=== PATIENT | male | born 1980 | race Two or more races ===

== ENCOUNTER 2025-09-23 03:47 | Inpatient (IN) | payer MEDICAID, OTHER ==
[~2025-09-23] VITALS: Ht 177.8 cm; Wt 140.0 kg
[2025-09-23 04:23] LABS: Hematocrit 44.1 % (41.0-53.0); Hemoglobin 15.3 g/dL (13.5-17.5); Mean Corpuscular Hemoglobin 30.9 pg (28.0-32.0); Mean Corpuscular Volume 89.3 fL (80.0-100.0); Nucleated Red Blood Cells % 0.0 %
--- NOTE | 2025-09-23 04:26 | ED.PDOC ---
History of Present Illness HPI Comments 45-year-old male who came to ER for chest pains. Patient has a history of hypertension but has stopped taking his medications. He has been experiencing flu-like symptoms for the past 3 days, with weakness, body pains, shortness of breath and midsternal chest pressure, 6/10 in intensity. Persistence of chest pains prompted patient to come to the ER. Patient appears very diaphoretic at this time of care REVIEW OF SYSTEMS: General: No fever, no chills, or fatigue HEENT: No sore throat, no earache, no congestion, no neck pain. Cardiac: (+) chest pain. No palpitations. Lungs: (+) shortness of breath, no cough. GI: No nausea, no vomiting, no diarrhea, no constipation, no abdominal pain : No dysuria, frequency, or urgency. No hematuria. Musculoskeletal: No joint pain , no joint swelling, no extremity edema. (+) body pain Skin: No rash, no itching. Neuro: No headache, no dizziness, no weakness EXAM: General: Awake, alert and oriented. No acute distress. Skin: Skin in warm, dry and intact. Appropriate color for ethnicity. HEENT: The head is normocephalic and atraumatic. Conjunctivae are clear without exudates or hemorrhage. Sclera is non-icteric. EOM are intact. No signs of nysta gmus. Eyelids are normal in appearance without swelling or lesions. Oral mucosa is pink and moist Neck: The neck is supple with normal range of motion. No JVD. Cardiac: Heart rate and rhythm are normal. No murmurs, gallops, or rubs are auscultated. Respiratory: No signs of respiratory distress. Lung sounds are clear in all lobes bilaterally without rales, rhonchi, or wheezes. Abdominal: Abdomen is soft, non-tender without distention. Bowel sounds are present and normoactive in all four quadrants. Extremities: Upper and lower extremities are atraumatic in appearance without deformity or edema. Neurological: The patient is awake, alert and oriented to person, place, and time with normal speech. Speech is clear. There is no facial asymmetry. Psychiatric: Appropriate mood and affect. Good judgement and insight Chief Complaint: Chest Pain Time Seen by MD: 04:26 Reviewed Notes: Nurses Notes Allergies: Coded Allergies: No Known Drug Allergy (Verified Allergy, Unknown, 09/23/25) Information Source: Patient Mode of Arrival: Ambulatory Past Medical History PAST MEDICAL HISTORY: HTN Past Medical History (Other): Skin cancer Surgical History (Other): Resection of skin cancer Family History Family History: Reviewed,noncontributory to illness Social History Smoker: Non-Smoker Alcohol: Denies ETOH Use Drugs: Marijuana Lives In: Home Was a procedure done? Was a procedure done?: No EKG EKG : Pulse Rate (adult): 91 Cardiac Rhythm: NSR Differential Dx Considerations may include: Anemia, electrolyte imbalance, viral syndrome, chest pain, coronary artery disease, OK X-Ray, Labs, Meds, VS Vital Signs Date Time Temp Pulse Resp B/P (MAP) Pulse Ox O2 Delivery O2 Flow Rate FiO2 09/23/25 07:34 81 09/23/25 07:31 97.8 89 18 142/89 (106) 95 97.8 09/23/25 05:33 90 20 93 Room Air 09/23/25 05:33 97.9 90 20 137/91 (106) 93 97.9 09/23/25 04:58 88 09/23/25 04:34 20 93 Room Air* 0 21 09/23/25 04:26 91 09/23/25 03:57 91 09/23/25 03:48 97.6 90 18 124/77 95 97.6 Lab Test 09/23/25 07:09 09/23/25 05:40 09/23/25 05:06 09/23/25 04:09 Range/Units Troponin I High Sensitivity 15 18 18 </=54 ng/L Influenza Type A Antigen Negative Negative Influenza Type B Antigen Negative Negative SARS-CoV-2 Antigen (Rapid) Negative NEGATIVE White Blood Count 9.4 4.4-10.8 10^3/uL Red Blood Count 4.94 4.5-5.90 10^6/uL Hemoglobin 15.3 13.5-17.5 g/dL Hematocrit 44.1 41.0-53.0 % Mean Corpuscular Volume 89.3 80.0-100.0 fL Mean Corpuscular Hemoglobin 30.9 28.0-32.0 pg Mean Corpuscular Hemoglobin Concent 34.6 32.0-36.0 g/dL Red Cell Distribution Width 14.3 11.8-14.3 % Platelet Count 293 140-450 10^3/uL Mean Platelet Volume 7.7 6.9-10.8 fL Neutrophils (%) (Auto) 65.0 37.0-80.0 % Lymphocytes (%) (Auto) 21.5 10.0-50.0 % Monocytes (%) (Auto) 10.0 0.0-12.0 % Eosinophils (%) (Auto) 2.7 0.0-7.0 % Basophils (%) (Auto) 0.8 0.0-2.0 % Neutrophils # (Auto) 6.1 1.6-8.6 10 ^3/uL Lymphocytes # (Auto) 2.0 0.4-5.4 10 ^3/uL Monocytes # (Auto) 0.9 0-1.3 10 ^3/uL Eosinophils # (Auto) 0.3 0-0.8 10 ^3/uL Basophils # (Auto) 0.1 0-0.2 10 ^3/uL Nucleated Red Blood Cells 0.0 % Sodium Level 139 136-145 mmol/L Potassium Level 4.0 3.5-5.1 mmol/L Chloride Level 107 98-107 mmol/L Carbon Dioxide Level 22 20-31 mmol/L Anion Gap 10 5-15 Blood Urea Nitrogen 10 9-23 mg/dL Creatinine 1.10 0.700-1.30 mg/dL Glomerular Filtration Rate Calc 85 >90 mL/min BUN/Creatinine Ratio 9.1 L 10.0-20.0 Serum Glucose 108 H 74-106 mg/dL Calcium Level 9.7 8.7-10.4 mg/dL CHEST RADIOGRAPH INDICATION: chest pain TECHNIQUE: Single frontal view of the chest was obtained COMPARISON: None IMPRESSION: Heart appears normal in size. The lungs appear clear without focal airspace opacity, effusion, or pneumothorax Time of 1ST Reevaluation: 04:21 Reevaluation 1ST: Unchanged Patient Education/Counseling: Need For Follow Up Family Education/Counseling: No Family Present SEPSIS Sepsis Screen Date sepsis recognized/suspect: Sep 23, 2025 Time Sepsis recognized/suspect: 035 Recent Procedure: No On Antibiotic Therapy: No Respiratory Rate >20: No Heart Rate >90: No Temp<36 C (96.8 F) or >38.3 C: No SBP <90 or MAP <65 mmHG: No New Acute Mental Status Change: No Is the patient on CPAP, BIPAP,: No Physician Orders Chest Portable (09/23/25 03:52) Electrocardigram (09/23/25 03:52) Electrocardigram (09/23/25 04:52) Electrocardigram (09/23/25 06:52) Code Status (09/23/25 07:55) Oxygen Per Hour (09/23/25 07:55) Vital Signs Date Time Temp Pulse Resp B/P (MAP) Pulse Ox O2 Delivery O2 Flow Rate FiO2 09/23/25 07:34 81 09/23/25 07:31 97.8 89 18 142/89 (106) 95 97.8 09/23/25 05:33 90 20 93 Room Air 09/23/25 05:33 97.9 90 20 137/91 (106) 93 97.9 09/23/25 04:58 88 09/23/25 04:34 20 93 Room Air* 0 21 09/23/25 04:26 91 09/23/25 03:57 91 09/23/25 03:48 97.6 90 18 124/77 95 97.6 Laboratory Tests Test 09/23/25 04:09 White Blood Count 9.4 10^3/uL (4.4-10.8) Departure 1 Departure Time of Disposition: 05:46 Impression: Primary Impression: Chest pain Disposition: ADMITTED INPATIENT Condition: Stable Comments 45 yo male with multiple risk factors with ongoing chest pain concerning for ACS. Patient admitted to hospitalist service for further treatment, evaluation and monitoring. Critical Care Note Critical Care Time?: No Stability Stability form required: No Heart Score Heart Score: Heart Score Response (Comments) Value History N/A 0 EKG N/A 0 Age N/A 0 Risk Factors N/A 0 Troponin N/A 0 Total 0 I personally scribed for JACKY LOZOYA MD ([email or web address]) on 09/23/25 at 04:26. Electronically submitted by Tulio Butler ([employer]). I personally scribed for JACKY LOZOYA MD ([email or web address]) on 09/23/25 at 05:12. Electronically submitted by Tulio Butler ([email or web address]). JACKY LOZOYA MD Sep 23, 2025 04:26
[2025-09-23 04:29] LABS: Potassium 4.0 mmol/L (3.5-5.1); Sodium 139 mmol/L (136-145)
[2025-09-23 04:30] LABS: Anion Gap 10 (5-15); Calcium 9.7 mg/dL (8.7-10.4); Carbon Dioxide 22 mmol/L (20-31)
[2025-09-23] MEDS: ALBUTEROL SULF 2.5 MG/0.5ML(0.5%) NEB SOLN NEB ONE (04:34)
[2025-09-23 04:35] LABS: BUN/Creatinine Ratio 9.1 (10.0-20.0); Blood Urea Nitrogen 10 mg/dL (9-23)
--- NOTE | 2025-09-23 04:35 | DVH ---
CHEST RADIOGRAPH INDICATION: chest pain TECHNIQUE: Single frontal view of the chest was obtained COMPARISON: None IMPRESSION: Heart appears normal in size. The lungs appear clear without focal airspace opacity, effusion, or pneumothorax
[2025-09-23 04:36] LABS: Chloride 107 mmol/L (98-107); Glucose 108 mg/dL (74-106)
[2025-09-23] MEDS: ACETAMINOPHEN 500 MG TAB or CAP PO ONE (05:33)
[2025-09-23 06:37] LABS: COVID19 ANTIGEN SOFIA FIA NEGATIVE (NEGATIVE)
[2025-09-23] MEDS ORDERED: DOCUSATE SOD 100 MG CAP PO PRN (08:00)
[2025-09-23] MEDS ORDERED: HYDROcodone-ACET 5/325MG TAB PO PRN (08:00)
[2025-09-23] MEDS ORDERED: ONDANSETRON HCL 4 MG/2 ML VIAL IV PRN (08:00)
[2025-09-23] MEDS ORDERED: ALBUTEROL SULF 2.5 MG/0.5ML(0.5%) NEB SOLN NEB PRN (08:00)
--- NOTE | 2025-09-23 08:50 | DVHHP2 ---
History of Present Illness Reason for Visit: Acute chest pain History of Present Illness The patient is a 45-year-old male morbidly obese with past medical history of hypertension and skin cancer who presented to [facility] ED with complaint of chest pain. Patient reports has been experiencing persistent substernal chest pain rating 6/10 numeric scale, associated with flu-like symptoms for the past 3 days, body pain, weakness, shortness of breaths, getting worse that prompted this visit. Patient was seen and evaluated in the ED, laboratory data shows WBC 9.4, platelets 293, sodium 139, potassium 4.0, BUN 10, creatinine 1.10, GFR 85, glucose 108, calcium 9.7, troponin 18, blood pressure 142/89, heart rate 82, temperature 97.8 F, O2 saturation 95% on room air. Chest x-ray showed no acute cardiopulmonary disease. Please see medication orders section in the computer. On my assessment, patient denied chest pain at this moment, no headache, dizziness, diaphoresis, shortness of breaths, no diarrhea, nausea, vomiting, fever, no chills. Patient was admitted for further evaluation and medical management. Past Medical History HTN, Skin cancer Past Surgical History Resection of skin cancer Family History Reviewed, noncontributory to the management of this case. Past Social History The patient lives at home, denies smoking, alcohol or illicit drugs abuse. Review of Systems Constitutional: Yes: Weakness; No: Fever, Chills, Sweats, Malaise, Other Eyes: No: Pain, Vision change, Conjunctivae inflammation, Eyelid inflammation, Other, Redness ENT: No: Ear pain, Ear discharge, Nose pain, Nose discharge, Nose congestion, Mouth pain, Mouth swelling, Throat pain, Throat swelling, Other Respiratory: No: Cough, Dry, Shortness of breath, SOB with excertion, Wheezing, Hemoptysis, Pleuritic Pain, Sputum, Wheezing, Other Cardiovascular: Chest Pain; No: Palpitations, Orthopnea, Paroxysmal Noc. Dyspnea, Edema, Lt Headedness, Other Gastrointestinal: No: Nausea, Vomiting, Abdominal Pain, Diarrhea, Constipation, Melena, Hematochezia, Other Genitourinary: No Dysuria, No Frequency, No Incontinence, No Hematuria, No Retention, No Other Musculoskeletal: No: other, neck pain, shoulder pain, arm pain, back pain, hand pain, leg pain, foot pain Skin: No: Rash, Lesions, Jaundice, Bruising, Other Neurological: No: Weakness, Numbness, Incoordination, Change in speech, Confusion, Seizures, Other Allergies: Coded Allergies: No Known Drug Allergy (Verified Allergy, Unknown, 09/23/25) Medications Current Medications Medications Dose Ordered Sig/Iram Route Start Time Stop Time Status Last Admin Dose Admin Albuterol 2.5 mg Q4HPRN PRN NEB 09/23/25 08:00 UNV Clonidine HCl 0.1 mg Q4HP PRN PO 09/23/25 08:00 Amlodipine Besylate 5 mg DAILY PO 09/23/25 10:00 Losartan Potassium 25 mg DAILY PO 09/23/25 10:00 Aspirin 81 mg DAILY PO 09/23/25 10:00 Sodium Chloride 1,000 ml @ 60 mls/hr [id number] IV 09/23/25 08:00 Acetaminophen/ Hydrocodone Bitart 1 tab Q4HP PRN PO 09/23/25 08:00 Ondansetron HCl 4 mg Q4HP PRN IV 09/23/25 08:00 Docusate Sodium 100 mg BIDPRN PRN PO 09/23/25 08:00 Acetaminophen 650 mg Q6HP PRN PO 09/23/25 08:00 Exam Vital Signs Vital Signs Date Time Temp Pulse Resp B/P (MAP) Pulse Ox O2 Delivery O2 Flow Rate FiO2 09/23/25 07:34 81 09/23/25 07:31 97.8 18 142/89 (106) 95 97.8 09/23/25 05:33 Room Air 09/23/25 04:34 0 21 General Appearance: Alert, Oriented X3, Cooperative, No acute distress HEENT: Atraumatic, PERRLA, EOMI, Mucous membr. moist/pink Respiratory: Clear to auscultation, Normal air movement Cardiovascular: Regular rate, Normal S1, Normal S2, No murmurs Abdominal: Normal bowel sounds, Soft, No tenderness, No hepatospenomegaly, No masses Extremities: No clubbing, No cyanosis, No edema, Normal pulses, No tender ness/swelling Skin: No rashes, No significant lesion Neuro: Normal speech, Normal tone, Sensation intact, Cranial nerves 3-12 NL, Reflexes 2+, Other (Generalized weakness) Psych/Mental Status: Mental status NL, Mood NL Labs/Xrays Labs Test 09/23/25 07:09 09/23/25 05:40 09/23/25 04:09 Range/Units Troponin I High Sensitivity 15 </=54 ng/L Influenza Type A Antigen Negative Negative Influenza Type B Antigen Negative Negative SARS-CoV-2 Antigen (Rapid) Negative NEGATIVE White Blood Count 9.4 4.4-10.8 10^3/uL Red Blood Count 4.94 4.5-5.90 10^6/uL Hemoglobin 15.3 13.5-17.5 g/dL Hematocrit 44.1 41.0-53.0 % Mean Corpuscular Volume 89.3 80.0-100.0 fL Mean Corpuscular Hemoglobin 30.9 28.0-32.0 pg Mean Corpuscular Hemoglobin Concent 34.6 32.0-36.0 g/dL Red Cell Distribution Width 14.3 11.8-14.3 % Platelet Count 293 140-450 10^3/uL Mean Platelet Volume 7.7 6.9-10.8 fL Neutrophils (%) (Auto) 65.0 37.0-80.0 % Lymphocytes (%) (Auto) 21.5 10.0-50.0 % Monocytes (%) (Auto) 10.0 0.0-12.0 % Eosinophils (%) (Auto) 2.7 0.0-7.0 % Basophils (%) (Auto) 0.8 0.0-2.0 % Neutrophils # (Auto) 6.1 1.6-8.6 10 ^3/uL Lymphocytes # (Auto) 2.0 0.4-5.4 10 ^3/uL Monocytes # (Auto) 0.9 0-1.3 10 ^3/uL Eosinophils # (Auto) 0.3 0-0.8 10 ^3/uL Basophils # (Auto) 0.1 0-0.2 10 ^3/uL Nucleated Red Blood Cells 0.0 % Sodium Level 139 136-145 mmol/L Potassium Level 4.0 3.5-5.1 mmol/L Chloride Level 107 98-107 mmol/L Carbon Dioxide Level 22 20-31 mmol/L Anion Gap 10 5-15 Blood Urea Nitrogen 10 9-23 mg/dL Creatinine 1.10 0.700-1.30 mg/dL Glomerular Filtration Rate Calc 85 >90 mL/min BUN/Creatinine Ratio 9.1 L 10.0-20.0 Serum Glucose 108 H 74-106 mg/dL Calcium Level 9.7 8.7-10.4 mg/dL PATIENT: CINDY ORTIZ ACCT: [id number] UNIT: [id number] : 1980 LOC: ER ROOM / BED: / AGE / SEX: 45 / M ADM STATUS: REG ER SERVICE 1 ORDERING PHYSICIAN: ER PROCEDURE(s): CXRP - CHEST PORTABLE REASON: chest pain ORDER NUMBER(s): [id number], ACCESSION NUMBER(s): [id number] CHEST RADIOGRAPH INDICATION: chest pain TECHNIQUE: Single frontal view of the chest was obtained COMPARISON: None IMPRESSION: Heart appears normal in size. The lungs appear clear without focal airspace opacity, effusion, or pneumothorax. SEPSIS Sepsis Screen Date sepsis recognized/suspect: Sep 23, 2025 Time Sepsis recognized/suspect: 349 Recent Procedure: No On Antibiotic Therapy: No Respiratory Rate >20: No Heart Rate >90: No Temp<36 C (96.8 F) or >38.3 C: No SBP <90 or MAP <65 mmHG: No New Acute Mental Status Change: No Is the patient on CPAP, BIPAP,: No Physician Orders Chest Portable (09/23/25 03:52) Electrocardigram (09/23/25 03:52) Electrocardigram (09/23/25 04:52) Electrocardigram (09/23/25 06:52) Clonidine Hcl Tablet (Catapres Tablet) (09/23/25 08:00) Amlodipine Tablet (Norvasc Tablet) (09/23/25 10:00) Losartan Tablet (Cozaar Tablet) (09/23/25 10:00) Aspirin Chewable Tablet (09/23/25 10:00) Allergies (09/23/25 07:55) Code Status (09/23/25 07:55) Sodium Chloride 0.9% (09/23/25 08:00) Oxygen Per Hour (09/23/25 07:55) Hydrocodone-Acet 5/325mg Tab (Bentley 5/32 (09/23/25 08:00) Ondansetron Hcl (Zofran) (09/23/25 08:00) Docusate Sodium Capsule (Colace Capsule) (09/23/25 08:00) Complete Blood Count (09/24/25 04:00) Comprehensive Metabolic Panel (09/24/25 04:00) Cardiac Diet-2gna,Lofat,Lochol (09/23/25 Breakfast) Condition: Serious (09/23/25 07:55) Acetaminophen Tablet (Tylenol Tablet) (09/23/25 08:00) Bedrest With Bathroom Privileg (09/23/25 07:55) Sequential Compression Device (09/23/25 ) Vital Signs Date Time Temp Pulse Resp B/P (MAP) Pulse Ox O2 Delivery O2 Flow Rate FiO2 09/23/25 07:34 81 09/23/25 07:31 97.8 89 18 142/89 (106) 95 97.8 09/23/25 05:33 90 20 93 Room Air 09/23/25 05:33 97.9 90 20 137/91 (106) 93 97.9 09/23/25 04:58 88 09/23/25 04:34 20 93 Room Air* 0 21 09/23/25 04:26 91 09/23/25 03:57 91 09/23/25 03:48 97.6 90 18 124/77 95 97.6 Laboratory Tests Test 09/23/25 04:09 White Blood Count 9.4 10^3/uL (4.4-10.8) Medications Medications Dose Ordered Sig/Iram Route Start Time Stop Time Status Last Admin Dose Admin Acetaminophen 1,000 mg ONCE ONCE PO 09/23/25 04:30 09/23/25 04:31 DC 09/23/25 05:33 1,000 MG Albuterol 5 mg ONCE ONCE NEB 09/23/25 04:30 09/23/25 04:31 DC 09/23/25 04:34 5 MG Aspirin 324 mg ONCE ONCE PO 09/23/25 04:30 09/23/25 04:31 DC 09/23/25 05:32 324 MG Assessment/Plan Assessment/Plan Acute chest pain Morbid obesity Generalized weakness Plan 1. Admit to telemetry unit 2. Breathing treatment 3. Pain control management 4. Management of fluids and electrolytes 5. Consultation for Cardiology 6. Diagnostic tests chest x-ray 7. DVT prophylaxis-on aspirin 8. Repeat labs CBC, CMP in a.m. 9. Continue with current medical management 10. Treatment plan discussed with patient and RN. Patient verbalized understanding. Plan discussed with: Patient, Other (RN) My Orders Orders - VINNY MACEDO DNP Procedure Category Date Status Time Clonidine Hcl Tablet PHA 09/23/25 In Process (Catapres Tablet) 08:00 Amlodipine Tablet PHA 09/23/25 In Process (Norvasc Tablet) 10:00 Losartan Tablet PHA 09/23/25 In Process (Cozaar Tablet) 10:00 Aspirin Chewable PHA 09/23/25 In Process Tablet 10:00 Allergies TEZ 09/23/25 In Process 07:55 Code Status CODE 09/23/25 Transmitted 07:55 Sodium Chloride 0.9% PHA 09/23/25 In Process 08:00 Oxygen Per Hour RT 09/23/25 Transmitted 07:55 Hydrocodone-Acet PHA 09/23/25 In Process 5/325mg Tab (Bentley 08:00 Ondansetron Hcl PHA 09/23/25 In Process (Zofran) 08:00 Docusate Sodium PHA 09/23/25 In Process Capsule (Colace 08:00 Complete Blood Count LAB 09/24/25 Verified 04:00 Comprehensive LAB 09/24/25 Verified Metabolic Panel 04:00 Cardiac DIET 09/23/25 Transmitted Diet-2gna,Lofat,Lochol Breakfast Condition: Serious TEZ 09/23/25 In Process 07:55 Acetaminophen Tablet PHA 09/23/25 In Process (Tylenol Tablet) 08:00 Bedrest With Bathroom TEZ 09/23/25 In Process Privileg 07:55 Sequential TEZ 09/23/25 In Process Compression Device Problem List: (1) Acute chest pain (2) Morbid obesity (3) Generalized weakness Date of Service: Sep 23, 2025 Billing Provider: VINNY MACEDO DNP Common Visit Codes: [id number] INP/OBS CARE (HIGH) VINNY MACEDO DNP Sep 23, 2025 08:50
[2025-09-23] MEDS ORDERED: NITROGLYCERIN 0.4 MG SL TAB SL PRN (09:00)
[2025-09-23] MEDS ORDERED: MORPHINE SULFATE 4 MG/ML SYR/VIAL IV PRN (09:15)
[2025-09-23 10:44] VITALS: BP 119/77; PULSE 82; RESP 16; TEMP 97.7; O2SAT 93
[2025-09-23] MEDS: LOSARTAN POTASSIUM 25 MG TAB PO SCH (11:44)
[2025-09-23] MEDS: SODIUM CHLORIDE 0.9% 1,000 ML IV SCH (11:44)
[2025-09-23 15:00] VITALS: BP 114/70; PULSE 80; RESP 19; TEMP 97.7; O2SAT 94
[2025-09-23 17:00] VITALS: BP 120/60; PULSE 65; RESP 16; TEMP 97; O2SAT 97
[2025-09-23 19:30] VITALS: PULSE 65; PULSE 68; RESP 16; O2SAT 97
[2025-09-23 21:00] VITALS: BP 90/57; PULSE 75; RESP 17; TEMP 97.2; O2SAT 91
[2025-09-24] VITALS (7 sets, daily range): BP systolic 110–140; BP diastolic 53–88; PULSE 66–88; RESP 16–18; TEMP 37; O2SAT 92–97
[2025-09-24 07:01] LABS: Hematocrit 42.8 % (41.0-53.0); Hemoglobin 14.7 g/dL (13.5-17.5); Mean Corpuscular Hemoglobin 30.9 pg (28.0-32.0); Mean Corpuscular Volume 90.1 fL (80.0-100.0); Nucleated Red Blood Cells % 0.0 %
[2025-09-24 07:11] LABS: Albumin 4.0 g/dL (3.2-4.8); Alkaline Phosphatase 55 U/L (46-116); Anion Gap 8 (5-15); BUN/Creatinine Ratio 11.1 (10.0-20.0); Blood Urea Nitrogen 10 mg/dL (9-23); Calcium 9.2 mg/dL (8.7-10.4); Carbon Dioxide 26 mmol/L (20-31); Chloride 106 mmol/L (98-107); Glucose 95 mg/dL (74-106); Potassium 4.1 mmol/L (3.5-5.1); Sodium 140 mmol/L (136-145); Total Protein 6.8 g/dL (5.7-8.2)
[2025-09-24 07:12] LABS: Alanine Aminotransferase 52 U/L (7-40); Bilirubin, Total 0.6 mg/dL (0.2-1.0)
[2025-09-24] MEDS: ACETAMINOPHEN 325 MG TAB PO PRN (08:49)
--- NOTE | 2025-09-24 09:48 | DVHINCON2 ---
KAYE HAMILTON [facility] 09/24/25 0948: Date Seen: Sep 24, 2025 Referring Physician TRIPP Trujillo Reason for Consultation Chest pain History of Present Illness This is a 45-year-old man who presented to the emergency room with a chief complaint of flu-like symptoms for 3 days. The patient presented with complaints of flu-like symptoms associated with myalgia, substernal chest congestion/pressure, mild shortness of breath, left flank/left lower ribcage pain, and a nonproductive cough with onset approximately two weeks ago. At time of assessment the patient stated the chest pain had resolved. He underwent multiple 12 lead electrocardiograms x2 revealing a normal sinus rhythm without evidence of ST-T wave segment changes. Serial troponin levels are negative. Significant medical history includes hypertension without medical therapy and skin cancer with resection. Past Medical History Past medical history reviewed. No other significant than mentioned above. Past Surgical History Skin cancer resection Family History: Diabetes mellitus G8 MOTHER FH: COPD (chronic obstructive pulmonary disease) G8 MOTHER Family History Family history reviewed. Social History Denies the use of illicit drugs, alcohol, or tobacco use. Allergies: Coded Allergies: No Known Drug Allergy (Verified Allergy, Unknown, 09/23/25) Home Meds Denies any active home medications. Current Medications Current Medications Medications (Trade) Dose Ordered Sig/Iram Route PRN Reason Start Time Stop Time Status Last Admin Amlodipine Besylate (Norvasc Tablet) 5 mg DAILY PO 09/23/25 10:00 09/24/25 08:50 Losartan Potassium (Cozaar Tablet) 25 mg DAILY PO 09/23/25 10:00 09/24/25 08:49 Aspirin 81 mg DAILY PO 09/23/25 10:00 09/24/25 08:50 Guaifenesin (Robitussin Plain Liquid) 200 mg Q6HP PRN PO FOR COUGH 09/24/25 01:00 09/24/25 08:48 Review of Systems Constitutional: Flu-like symptoms Ears, Nose, & Throat: No symptom reported Eyes: No symptom reported Neurological: No symptoms reported Pulmonary/Respiratory: SOB, nonproductive cough Cardiovascular: Chest pain/congestion Gastrointestinal: No symptom reported Genitourinary: No symptom reported Musculoskeletal: Left flank/left ribcage pain Skin: No symptom reported Psychiatric: No symptom reported Endocrine: No symptom reported Hemotologic/Lymphatic: No symptom reported Vital Signs Vital Signs Date Time Temp Pulse Resp B/P (MAP) Pulse Ox O2 Delivery O2 Flow Rate FiO2 09/24/25 08:50 111/83 09/24/25 08:00 17 97 Room Air* 0 21 09/24/25 05:00 97.9 80 97.9 Physical Exam General Appearance: Cooperative. Well developed. Obese. In no acute distress Head Exam: Normal inspection Neck Exam: Normal inspection. Non-tender. Normal alignment Pulmonary/Respiratory: Chest non-tender. Clear bilateral breath sounds Cardiovascular/Chest: Regular rate and rhythm. S1, S2. NSR. No murmurs. No JVD. Peripheral Pulses: 2+ Radial (R). 2+ Radial (L). 2+ Pedal (R). 2+ Pedal (L) Abdominal Exam: Normal bowel sounds. Soft Ankle Exam: Negative ankle edema Lower extremities: Negative lower extremity edema Neuro/Mental Status: A&O x4. Coherent Thoughts/Psych: Normal thought pattern. Appropriate mood and affect. Good judgement and insight Appearance: In no acute distress Skin Exam: Normal inspection. Normal color. Warm. Dry Labs/Diagnostic Data Labs Test 09/24/25 04:54 09/23/25 07:09 09/23/25 05:40 Range/Units White Blood Count 7.4 4.4-10.8 10^3/uL Red Blood Count 4.74 4.5-5.90 10^6/uL Hemoglobin 14.7 13.5-17.5 g/dL Hematocrit 42.8 41.0-53.0 % Mean Corpuscular Volume 90.1 80.0-100.0 fL Mean Corpuscular Hemoglobin 30.9 28.0-32.0 pg Mean Corpuscular Hemoglobin Concent 34.3 32.0-36.0 g/dL Red Cell Distribution Width 14.9 H 11.8-14.3 % Platelet Count 241 140-450 10^3/uL Mean Platelet Volume 8.2 6.9-10.8 fL Neutrophils (%) (Auto) 63.3 37.0-80.0 % Lymphocytes (%) (Auto) 21.9 10.0-50.0 % Monocytes (%) (Auto) 9.1 0.0-12.0 % Eosinophils (%) (Auto) 5.0 0.0-7.0 % Basophils (%) (Auto) 0.7 0.0-2.0 % Neutrophils # (Auto) 4.7 1.6-8.6 10 ^3/uL Lymphocytes # (Auto) 1.6 0.4-5.4 10 ^3/uL Monocytes # (Auto) 0.7 0-1.3 10 ^3/uL Eosinophils # (Auto) 0.4 0-0.8 10 ^3/uL Basophils # (Auto) 0.1 0-0.2 10 ^3/uL Nucleated Red Blood Cells 0.0 % Sodium Level 140 136-145 mmol/L Potassium Level 4.1 3.5-5.1 mmol/L Chloride Level 106 98-107 mmol/L Carbon Dioxide Level 26 20-31 mmol/L Anion Gap 8 5-15 Blood Urea Nitrogen 10 9-23 mg/dL Creatinine 0.90 0.700-1.30 mg/dL Glomerular Filtration Rate Calc 108 >90 mL/min BUN/Creatinine Ratio 11.1 10.0-20.0 Serum Glucose 95 74-106 mg/dL Calcium Level 9.2 8.7-10.4 mg/dL Total Bilirubin 0.6 0.2-1.0 mg/dL Aspartate Amino Transferase (AST) 34 13-40 U/L Alanine Aminotransferase (ALT) 52 H 7-40 U/L Alkaline Phosphatase 55 46-116 U/L Total Protein 6.8 5.7-8.2 g/dL Albumin 4.0 3.2-4.8 g/dL Troponin I High Sensitivity 15 </=54 ng/L Influenza Type A Antigen Negative Negative Influenza Type B Antigen Negative Negative SARS-CoV-2 Antigen (Rapid) Negative NEGATIVE Assessment Noncardiac chest pain, likely pleuritic in nature Likely upper respiratory infection Hypertension Obesity Plan/Recommendation (Dr. Whitehead) The patient presents with noncardiac chest pain, a heart score of 1 placing him at a low risk for major cardiac events, unremarkable 12 lead electrocardiograms, and negative troponin levels. The patient was advised to consider an outpatient stress test if deemed necessary. Chest pain symptoms likely secondary to persistent cough. HgbA1C, lipid panel, and TSH levels ordered. Primary care team to follow-up on results. There is no further cardiac workup indicated at this time. Kindly call if in need of any further recommendations. Thank you for allowing us to participate in this patient's care. Please call if you have any questions or concerns. This medical document was created using an electronic medical record system with voice recognition software and computerized dictation system. Although this document has been carefully reviewed, there might still be some phonetic and typographical errors. Occasional wrong-word or ``sound-alike substitutions may have occurred due to the inherent limitations of voice recognition software. These areas are purely typographical due to imperfections of the software programs and do not reflect any compromise in the patient's medical care. Please read the chart carefully and recognize, using context, where these substitutions have occurred. Plan discussed with: Patient, Other NYHA Physical activity limitations: NA Date of Service: Sep 24, 2025 Billing Provider: KAYE HAMILTON Cardiology Common Codes: 84848-XEZONBO INP/OBS CARE (High) ЮЛИЯ WHITEHEAD MD 09/24/25 1741: Date Seen: Sep 24, 2025 Referring Physician Patient was seen and examined at bedside. Plan was formulated with Kaye Hamilton cardiology SENIOR ELECTRONICS DESIGN ENGINEER as above. Юлия Whitehead MD Family History: Diabetes mellitus G8 MOTHER FH: COPD (chronic obstructive pulmonary disease) G8 MOTHER Allergies: Coded Allergies: No Known Drug Allergy (Verified Allergy, Unknown, 09/23/25) KAYE HAMILTON Sep 24, 2025 09:48 ЮЛИЯ WHITEHEAD MD Sep 24, 2025 17:41
[2025-09-24 10:46] LABS: Cholesterol 161 mg/dL (< 200); HDL Cholesterol 25 mg/dL (40-59); Triglycerides 241 mg/dL (< 150)
--- NOTE | 2025-09-24 12:54 | ECG ---
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
--- NOTE | 2025-09-24 16:10 | DVHDS2 ---
Discharge Summary Date of Admission Sep 23, 2025 at 08:48 Date of Discharge: Sep 24, 2025 Labs/Diagnostic Data: Laboratory Results Test 09/24/25 04:54 09/23/25 07:09 09/23/25 05:40 White Blood Count 7.4 10^3/uL (4.4-10.8) Red Blood Count 4.74 10^6/uL (4.5-5.90) Hemoglobin 14.7 g/dL (13.5-17.5) Hematocrit 42.8 % (41.0-53.0) Mean Corpuscular Volume 90.1 fL (80.0-100.0) Mean Corpuscular Hemoglobin 30.9 pg (28.0-32.0) Mean Corpuscular Hemoglobin Concent 34.3 g/dL (32.0-36.0) Red Cell Distribution Width 14.9 % (11.8-14.3) Platelet Count 241 10^3/uL (140-450) Mean Platelet Volume 8.2 fL (6.9-10.8) Neutrophils (%) (Auto) 63.3 % (37.0-80.0) Lymphocytes (%) (Auto) 21.9 % (10.0-50.0) Monocytes (%) (Auto) 9.1 % (0.0-12.0) Eosinophils (%) (Auto) 5.0 % (0.0-7.0) Basophils (%) (Auto) 0.7 % (0.0-2.0) Neutrophils # (Auto) 4.7 10 ^3/uL (1.6-8.6) Lymphocytes # (Auto) 1.6 10 ^3/uL (0.4-5.4) Monocytes # (Auto) 0.7 10 ^3/uL (0-1.3) Eosinophils # (Auto) 0.4 10 ^3/uL (0-0.8) Basophils # (Auto) 0.1 10 ^3/uL (0-0.2) Nucleated Red Blood Cells 0.0 % Sodium Level 140 mmol/L (136-145) Potassium Level 4.1 mmol/L (3.5-5.1) Chloride Level 106 mmol/L (98-107) Carbon Dioxide Level 26 mmol/L (20-31) Anion Gap 8 (5-15) Blood Urea Nitrogen 10 mg/dL (9-23) Creatinine 0.90 mg/dL (0.700-1.30) Glomerular Filtration Rate Calc 108 mL/min (>90) BUN/Creatinine Ratio 11.1 (10.0-20.0) Serum Glucose 95 mg/dL (74-106) Hemoglobin A1c 5.7 % A1C (<5.7) Calcium Level 9.2 mg/dL (8.7-10.4) Total Bilirubin 0.6 mg/dL (0.2-1.0) Aspartate Amino Transferase (AST) 34 U/L (13-40) Alanine Aminotransferase (ALT) 52 U/L (7-40) Alkaline Phosphatase 55 U/L (46-116) Total Protein 6.8 g/dL (5.7-8.2) Albumin 4.0 g/dL (3.2-4.8) Triglycerides Level 241 mg/dL (< 150) Cholesterol Level 161 mg/dL (< 200) LDL Cholesterol 107 mg/dL (< 100) HDL Cholesterol 25 mg/dL (40-59) Thyroid Stimulating Hormone (TSH) 0.59 uIU/mL (0.55-4.78) Troponin I High Sensitivity 15 ng/L (</=54) Influenza Type A Antigen Negative (Negative) Influenza Type B Antigen Negative (Negative) SARS-CoV-2 Antigen (Rapid) Negative (NEGATIVE) Other Laboratory Tests 09/24/25 04:54 Brief Hx & Hospital Course: 45-year-old male with a known history of hypertension, morbid obesity class three presented to the hospital with the chest pain and flu-like symptoms. Patient's chest x-ray was normal. Patient's tropes seven normal. Initially patient was requesting to get checked up for STDs but then he decided to go home. Patient is being discharged under stable condition. Diet weight reduction and exercise counseling. Please return to ER if there is any concern. Condition at Discharge: Stable Final Diagnosis/Problems List Chest pain likely noncardiac Upper respiratory tract infection likely viral nature Hypertension Morbid obesity classII Noncardiac chest pain, likely pleuritic in nature Likely upper respiratory infection Hypertension Obesity Discharge Disposition: Home Discharge Instruct/Medications Diet: Cardiac 2g Na,low cholest Activity: No Restrictions, As Tolerated Follow Up/Referral: Follow up with the PCP in one week Medications: Resume home medications. Discharge Statement: "Patient was advised to return to the ER or call 911 if any headaches, dizziness, shortness of breath, chest pain, abdominal pain, bleeding, fevers, or worsening of medical condition. Patient was counseled about treatment plan, medications, possible side effects, patientverbalized understanding. All questions were answered to the best of my ability. This discharge took greater then 30 minutes in planning, reviewing documentation, counseling the patient, and discussing with other team members." ASSESSMENT ASSESSMENT Assessment Chest pain likely noncardiac Upper respiratory tract infection likely viral nature Hypertension Morbid obesity classII Noncardiac chest pain, likely pleuritic in nature Likely upper respiratory infection Hypertension Obesity Date of Service: Sep 24, 2025 Billing Provider: YUDI VILLATORO MD Common Visit Codes: 78545-GIG/OBS DISCH DAY >30min, NOT BILLABLE YUDI VILLATORO MD Sep 24, 2025 16:10
--- NOTE | 2025-09-25 10:25 | ECG ---
[facility] Test Date: 2025-09-23 Test Time: 04:58:54 Pat Name: CINDY ORTIZ Department: ED Room: 0215T A Gender: M Pediatric Lpn: roro : 1980 Requested By: EMERGENCY EMERGENCY Order Number: [id number] Reading MD: Barney Jacinto Measurements Intervals [place] Rate: 88 P: 67 [place]: 141 QRS: 81 QRSD: 103 T: -21 QT: 370 QTc: 448 Interpretive Statements Sinus rhythm Low voltage, precordial leads Borderline T abnormalities, inferior leads Electronically Signed On 09-25-2025 15:26:15 PST by Barney Jacinto Please click the below link to view image of tracing.
--- NOTE | 2025-09-25 10:26 | ECG ---
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
--- NOTE | 2025-09-25 12:18 | ECG ---
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
== END 2025-09-24 17:08 | disposition home or self-care (01) | DRG 145 ==
LOC: ER 03:47 → OVERFLOW 08:48 → TELE-CENTR 14:53
PROVIDERS: ADMIT Nurse Practitioner Family; ATTEND Nurse Practitioner Family
DX: R07.81 Pleurodynia (principal); E66.01 Morbid (severe) obesity due to excess calories; I10 Essential (primary) hypertension; Z68.41 Body mass index [BMI] 40.0-44.9, adult; Z20.822 Contact with and (suspected) exposure to COVID-19; J06.9 Acute upper respiratory infection, unspecified; Z85.828 Personal history of other malignant neoplasm of skin; Z83.3 Family history of diabetes mellitus; Z82.5 Family history of asthma and other chronic lower respiratory diseases; Z91.128 Patient's intentional underdosing of medication regimen for other reason
CPT/HCPCS: 36415; 71045; 80048; 80053; 80061; 83036; 84443; 84484; 85025; 87426; 87804; 93005; 94640; G0378